=== PATIENT | male | born 1980 | race Caucasian/White ===

== ENCOUNTER 2018-12-21 19:28 | Emergency (ER) | payer BC ==
[~2018-12-21] VITALS: Ht 177.8 cm; Wt 86.2 kg
[2018-12-21 19:37] VITALS: BP 120/90
--- NOTE | 2018-12-21 19:40 | NUR ---
to lobby a/w bed, samantha rush noted
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
[2018-12-21] MEDS ORDERED: NACL 0.9% 1,000 ML IV ONE (20:55)
[2018-12-21] MEDS ORDERED: LORazepam 2 MG/ML VIAL IVP ONE (20:55)
[2018-12-21 21:11] LABS: BASOPHILS # (AUTO) 0.1 K/uL (0.00-0.22); BASOPHILS % (AUTO) 1.5 % (0.0-2.0); EOSINOPHILS # (AUTO) 0.4 K/uL (0-0.4); EOSINOPHILS % (AUTO) 7.4 % (0.0-4.0); HEMATOCRIT 45.1 % (36-52); HEMOGLOBIN 14.9 g/dL (12.0-18.0); LYMPHOCYTES # (AUTO) 2.5 K/uL (2.0-11.5); LYMPHOCYTES % (AUTO) 41.1 % (20.5-51.1); MEAN CORPUSCULAR HEMOGLOBIN 29 pg (27-31); MEAN CORPUSCULAR HGB CONC 33 g/dL (33-37); MEAN CORPUSCULAR VOLUME 88.2 fL (80-94); MONOCYTES # (AUTO) 0.7 K/uL (0.8-1.0); MONOCYTES % (AUTO) 11.9 % (1.7-9.3); NEUTROPHILS # (AUTO) 2.3 K/uL (1.8-7.7); NEUTROPHILS % (AUTO) 38.1 % (42.2-75.2); PLATELET COUNT (AUTO) 180 K/uL (140-450); RED BLOOD CELL COUNT(AUTO) 5.11 MIL/uL (4.20-6.10); RED CELL DISTRIBUTION WIDTH 12.9 % (11.6-13.7)
[2018-12-21 21:23] LABS: ANION GAP 6.7 (8-16); CARBON DIOXIDE 31.2 mmol/L (21-32); CREATININE 1.2 mg/dL (0.7-1.3); POTASSIUM 3.9 mmol/L (3.5-5.1)
[2018-12-21 21:29] LABS: ALBUMIN 3.9 g/dL (3.4-5.0); TOTAL BILIRUBIN 0.6 mg/dL (0.0-1.0)
[2018-12-21 21:43] VITALS: BP 118/76
--- NOTE | 2018-12-21 21:43 | NUR ---
Patient discharged with v/s stable. Written and verbal after care instructions given and explained. Patient verbalized understanding. Ambulatory with steady gait. All questions addressed prior to discharge. Advised to follow up with PMD.
== END 2018-12-21 21:43 | disposition home or self-care (01) ==
LOC: MED 19:28
DX: E86.0 Dehydration (principal); F10.239 Alcohol dependence with withdrawal, unspecified; E11.9 Type 2 diabetes mellitus without complications; Y90.9 Presence of alcohol in blood, level not specified
CPT/HCPCS: 36415; 80053; 82948; 85025; 96361; 96374; 99283; J2060; J7030

== ENCOUNTER 2019-04-01 17:44 | Emergency (ER) | payer BC ==
[~2019-04-01] VITALS: Ht 180.3 cm; Wt 79.4 kg
[2019-04-01 17:47] VITALS: BP 121/80
--- NOTE | 2019-04-01 17:58 | NUR ---
PATIENT AMBULATED TO BED 1
--- NOTE | 2019-04-01 18:09 | NUR ---
39 Y MALE BIB [facility] C/O right sided of neck pain, swollen & rash X 3 DAYS. RASHES :RIGHT SHOULDER , RIGHT UPPER CHEST, BACK OF NECK. +ITCHING, +REDNESS. BREATHING UNLABORED. VSS AT THIS TIME. PT ALERT AND ORIENTED. BED IS DOWN, LOCKED, BED RAIL X 1, ERMD TO SEE PT. MED HX; DM MED: NONE
--- NOTE | 2019-04-01 19:05 | NUR ---
DR BATRES AT BEDSIDE FOR PT EVALUATION
--- NOTE | 2019-04-01 19:13 | NUR ---
RECEIVED REPORT FROM LUCRECIA HODGSON.
--- NOTE | 2019-04-01 19:13 | NUR ---
REPORT GIVEN TO NUPUR SINGER
[2019-04-01 19:40] VITALS: BP 124/78
--- NOTE | 2019-04-01 19:40 | NUR ---
Patient discharged with v/s stable. Written and verbal after care instructions given and explained by Dr. Cartwright. Patient alert, oriented and verbalized understanding of instructions. Ambulatory with steady gait. All questions addressed prior to discharge. ID band removed. Patient advised to follow up with PMD. Rx of Acyclovir, Naprosyn and Valium given. Patient educated on indication of medication including possible reaction and side effects. Opportunity to ask questions provided and answered.
== END 2019-04-01 19:40 | disposition home or self-care (01) ==
LOC: MED 17:44
DX: B02.9 Zoster without complications (principal); E11.9 Type 2 diabetes mellitus without complications
CPT/HCPCS: 82948; 99283

== ENCOUNTER 2019-07-25 19:20 | Emergency (ER) | payer BC ==
[~2019-07-25] VITALS: Ht 180.3 cm; Wt 83.9 kg
[2019-07-25 19:20] VITALS: BP 142/90
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
--- NOTE | 2019-07-25 19:39 | NUR ---
JAYASHREE ANDRADE AT BEDSIDE
--- NOTE | 2019-07-25 19:40 | NUR ---
PT'S INSTRUCTED TO STEP OUT OF ROOM FOR PT'S PRIVACY.
[2019-07-25 20:10] VITALS: BP 142/90
--- NOTE | 2019-07-25 20:10 | NUR ---
Patient discharged with v/s stable. Written and verbal after care instructions given and explained. Patient alert, oriented and verbalized understanding of instructions. Ambulatory with steady gait. All questions addressed prior to discharge. ID band removed. Patient advised to follow up with PMD. Rx of ACYCLOVIR, IBUPROFEN given. Patient educated on indication of medication including possible reaction and side effects. Opportunity to ask questions provided and answered.
[2019-07-28 06:07] LABS: CHLAMYDIA TRACHOMATIS AMP DNA Negative (Negative)
== END 2019-07-25 20:10 | disposition home or self-care (01) ==
LOC: MED 19:20
DX: N48.89 Other specified disorders of penis (principal); R03.0 Elevated blood-pressure reading, without diagnosis of hypertension; E11.9 Type 2 diabetes mellitus without complications
CPT/HCPCS: 36415; 81002; 87491; 99283